=== PATIENT | female | born 1980 | race Caucasian/White ===

== ENCOUNTER 2016-10-20 23:25 | Emergency (ER) | payer OTHER ==
[~2016-10-20] VITALS: Ht 167.6 cm; Wt 68.2 kg
[~2016-10-20 23:25] MED LIST: IBUP800T28 PO; LORA-303 PO; ONDA4TAB9 PO
[2016-10-20 23:29] VITALS: BP 127/87; PULSE 62; RESP 16; O2SAT 96
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
[2016-10-21 02:20] LABS: APPEARANCE,URINE HAZY (CLEAR,HAZY); COLOR,URINE DARK YELLOW (YELLOW); OCCULT BLOOD,URINE NEGATIVE (NEGATIVE); PH,URINE 5.5 (5.0-8.0); UROBILINOGEN,URINE NORMAL (NORMAL)
[2016-10-21 02:44] LABS: Mean Corpuscular Hemoglobin 30.4 pg (27.0-35.0); Mean Corpuscular Volume 88.2 fL (81-100); Platelet Count 250 bil/L (150-400)
[2016-10-21 02:45] LABS: BASOPHILS % (AUTO) 0.4 % (0-3); EOSINOPHILS % (AUTO) 0.6 % (0-5); MONOCYTES % (AUTO) 6.8 % (4-12); NEUTROPHILS % (AUTO) 73.4 % (40-74)
[2016-10-21 03:46] VITALS: BP 120/76; PULSE 90; RESP 18; O2SAT 98
[2016-10-21 05:57] VITALS: BP 113/74; PULSE 80; RESP 18; O2SAT 98
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
[2016-10-21 08:20] VITALS: BP 111/73; PULSE 82; RESP 16; O2SAT 97
[2016-10-21] MEDS ORDERED: CEPH500C PO (08:25)
== END 2016-10-21 08:40 | disposition home or self-care (01) ==
LOC: SED 23:25
DX: R41.0 Disorientation, unspecified (principal); F15.10 Other stimulant abuse, uncomplicated; N76.2 Acute vulvitis; F17.200 Nicotine dependence, unspecified, uncomplicated; F12.10 Cannabis abuse, uncomplicated; Z59.0 Homelessness; Z88.2 Allergy status to sulfonamides; Z88.6 Allergy status to analgesic agent
CPT/HCPCS: 36415; 70450; 71010; 80053; 81000; 81025; 85025; 99284; G0480

== ENCOUNTER 2016-10-23 01:40 | Emergency (ER) | payer OTHER ==
[~2016-10-23] VITALS: Ht 162.6 cm; Wt 75.0 kg
[~2016-10-23 01:40] MED LIST changes: +CEPH500C PO
[2016-10-23 01:51] VITALS: BP 114/79; PULSE 88; RESP 16; O2SAT 98
--- NOTE | 2016-10-23 02:04 | ED.REPORT ---
HPI-General Illness Date of Service Oct 23, 2016 ED Provider: Cipriano Lizarraga MD Pt is a homeless 35 y/o female w/ a hx of PTSD, anxiety, methamphetamine abuse, presenting to the ED c/o rash over toes. The patient states that she has a staph infection of her toes which was "diagnosed a few days ago" and is "making her really sick". She was staying with someone who has snakes and thinks "this may have worsened her infection". She feels vaguely ill such as being subjectively feverish. She is homeless. She says the rash about her labia majora has improved. The patient was seen in the ED on 10/20/16 with vague complaints of rib pain and was found to have altered mental status which was thought to be secondary to methamphetamine intoxication. She was detoxed overnight in the ED and prior to being discharged complained about a rash about her groin. Her exam revealed cellulitis over the right labia majora and she was started on Keflex. She was not able to fill the prescription for Keflex because her insurance reportedly denied coverage for it from that specific pharmacy. Nursing Notes Stated Complaint: INFECTION Chief Complaint: General Complaint Nursing Notes Reviewed: Yes Allergies: Coded Allergies: Sulfa (Sulfonamide Antibiotics) (Verified Allergy, Severe, hives, 10/23/16) tramadol (Verified Adverse Reaction, Intermediate, "makes my head spin", ) Scheduled Cephalexin (Cephalexin) 500 Mg Capsule 500 MG PO QID Scheduled PRN Ibuprofen (Ibuprofen) 800 Mg Tablet 800 MG PO TID PRN PRN For Pain Lorazepam (Ativan) 1 Mg Tablet 1 MG PO DIRECTED PRN PRN For Anxiety 1 mg every 6 hours for 24 hours and then 1 mg 3 times a day for 24 hours then 1 mg twice a day for 24 hours then 1 mg on the last day. Ondansetron ODT (Zofran ODT) 4 Mg Tablet 4 MG PO Q4H PRN PRN For Nausea General Time Seen by MD: 01:50 Chief Complaint Other (rash) Hx Obtained From: Patient Arrived By: Walk-in Sudden in Onset?: No Onset Occurred: 9 - 12 hours ago Symptom Duration: Since onset Severity: Current: No pain currently Severity: Maximum: No pain Recent Healthcare: Recent doctor visit, Recent testing, Previous diagnosis, Prior workup Similar Sx Previous: Yes Past Medical History Past Medical History Degenerative joint disease PTSD, ADHD, Anxiety Methamphetamine abuse Past Surgical History Reports: Reports: Tubal ligation Smoking History Current Every Day Smoker Social History Alcohol Use: "Social" Drug Use: Meth Other Social History: Homeless Occupation On [employer]SI Ambulatory Status Independent Review of Systems Full Review of Systems Constitutional: Reports: Fever Skin: Reports Rash Complete sys rev & neg: except as marked. Physical Exam Vital Signs Vital Signs Date Time Temp Pulse Resp B/P Pulse Ox O2 Delivery O2 Flow Rate FiO2 10/23/16 01:51 36.7 88 16 114/79 98 Room Air Initial VS: Reviewed, Vital signs normal Head / Eyes: Atraumatic, Normocephalic ENT: Mucous membranes moist, Conjunctiva normal Neck: Full range of motion Respiratory: Breath sounds normal, Clear to auscultation, No respiratory distress Cardiovascular: Regular rate & rhythm, Heart sounds normal, Intact distal pulses Abdomen / GI: Soft, Non-tender Skin: Warm, Dry, No cyanosis Neurologic: Alert, Oriented, Nonfocal Psychiatric: Mood/affect normal, Behavior normal, Normal thought content General/Constitutional: Awake, Alert, No acute distress, Cooperative, Not toxic appearing Ankle / Foot: No deformity, Neurologic intact, Vascular intact Peeling of the feet. Mildly erythematous. No sign of obvious infection Blistering and callous formation from chronic walking from being homeless Re-Eval/Medical Decision Med Decision/Clinical Course 35-year-old with chronic drug abuse, presents with some minor skin breaks in skin infection on her feet, having not filled the prescription previously written. This prescription for Keflex, fortunately, exists as a prepack here, and is being dispensed. No other findings of concern. Discharge now in stable condition with Keflex in hand. Warm soaks recommended. Homelessness continues to be an issue, but she plans to go back to [place] where she has more support. Time of Eval: 02:25 Re-Evaluation/Progress Note: Pt rechecked. Informed pt of plan for discharge. Pt understands and agrees with plan for discharge. F/U instructions and RTER warnings given. All questions addressed. Counseled Regarding: Diagnosis, Need for follow-up, When/why to return to ED Discharge & Departure Primary Impression: Cellulitis Site of cellulitis: extremity Site of cellulitis of extremity: toe Laterality: unspecified laterality Qualified Code: L03.039 - Cellulitis of unspecified toe Additional Impression: Homelessness Disposition: Home Discharge Condition All VS Reviewed: Yes Condition: Stable Patient Instructions: Cellulitis (ED) Additional Instructions: Warm soaks to feet and to cyst on your labia, three times daily. Keflex three times daily. Follow-up with your doctor in the office. Call in the morning for follow-up. Referrals: OTHER,PHYSICIAN (PCP) (Family) Scribe Attestation Portions of this note were transcribed by Valente Daniel. I, Dr. Lizarraga, personally performed the history, physical exam and medical decision-making; I reviewed and confirmed the accuracy of the information in the transcribed note. Cipriano Lizarraga MD Oct 23, 2016 02:04 VALENTE DANIEL Oct 23, 2016 02:11
[2016-10-23 02:54] VITALS: BP 120/80; PULSE 82; RESP 16; O2SAT 99
[2016-10-23] MEDS ORDERED: _Cephalexin 500 mg Capsule PO SCH (08:30)
== END 2016-10-23 02:45 | disposition home or self-care (01) ==
LOC: SED 01:40
DX: L03.039 Cellulitis of unspecified toe (principal); R50.9 Fever, unspecified; F90.9 Attention-deficit hyperactivity disorder, unspecified type; F41.9 Anxiety disorder, unspecified; F43.10 Post-traumatic stress disorder, unspecified; F17.200 Nicotine dependence, unspecified, uncomplicated; Z59.0 Homelessness; Z88.2 Allergy status to sulfonamides; Z88.5 Allergy status to narcotic agent